=== PATIENT | male | born 1955 | race Caucasian/White ===

== ENCOUNTER 2017-09-30 16:42 | Emergency (ER) | payer OTHER ==
[~2017-09-30] VITALS: Ht 177.8 cm; Wt 102.1 kg
[~2017-09-30 16:42] MED LIST: BAYER CHEWABLE81 MG PO; CARVEDILOL12.5 MG PO; CARVEDILOL25 MG PO; COZAAR 50 MG TA50 M2 PO; EFFEXOR XR75 MG PO; FISH OIL 1,001000 M2 PO; FLEXERIL PO; FLONASE 0.05%50 MCG NASAL; LANOXIN 0.120.125 M1 PO; LIPITOR 20 MG T20 M1 PO; NEXIUM40 MG PO; REQUIP 0.25 M0.25 M1 PO; XANAX 0.5 MG0.5 MG PO
[2017-09-30] MEDS ORDERED: GEMFIBROZIL 60600 MG PO (16:51)
[2017-09-30] MEDS ORDERED: ZANTAC 150MG T150 MG PO (16:51)
[2017-09-30 17:24] LABS: ABSOLUTE BASOPHILS 0.1 thou/uL (0.0-0.2); ABSOLUTE EOSINOPHILS 0.2 thou/uL (0.0-0.7); ABSOLUTE LYMPHOCYTES 2.3 thou/uL (0.8-5.3); ABSOLUTE MONOCYTES 0.6 thou/uL (0.0-1.2); ABSOLUTE NEUTROPHILS 2.7 thou/uL (1.6-8.1); BASOPHILS 1.2 %; EOSINOPHILS 3.8 %; HEMATOCRIT 44.3 % (42.0-52.0); HEMOGLOBIN 15.2 gm/dL (14.0-18.0); MCH 30.5 pg (26.0-34.0); MCHC 34.4 g/dL (28.0-37.0); MCV 88.7 fL (80.0-100.0); MONOCYTES 10.8 %; MPV 9.1 fl. (7.2-11.1); NUCLEATED RBCS 0 /100WBC; PLATELET COUNT* 280 thou/uL (150-400); POLYS 45.2 %; RBC 4.99 mil/uL (4.50-6.00); RDW-CV 13.5 % (10.5-14.5); WBC 5.9 thou/uL (4.0-11.0)
[2017-09-30 17:35] LABS: ANION GAP 11 mmol/L (7-16); APTT 27.1 Seconds (25.0-31.3); BUN 18 mg/dL (7-18); CALCIUM 8.7 mg/dL (8.5-10.1); CHLORIDE 106 mmol/L (98-107); CO2 25 mmol/L (21-32); CREATININE 1.3 mg/dL (0.6-1.3); GLUCOSE 124 mg/dL (70-99); INR 1.1; POTASSIUM 3.8 mmol/L (3.5-5.1); PROTIME 10.6 Seconds (9.20-11.50); SODIUM 142 mmol/L (136-145)
[2017-09-30 17:43] LABS: ALBUMIN 3.7 g/dL (3.4-5.0); ALKALINE PHOSPHATASE 69 U/L (46-116); SGOT 26 U/L (15-37); SGPT 28 U/L (30-65); TOTAL BILIRUBIN 0.5 mg/dL (<0.1-1.0); TOTAL PROTEIN 7.6 g/dL (6.4-8.2); TROPONIN-I LEVEL <0.06 ng/mL (<0.06)
[2017-09-30] MEDS ORDERED: ACYCLOVIR 400400 MG PO (17:48)
[2017-09-30] MEDS ORDERED: PREDNISONE 20 M20 M1 PO (17:48)
[2017-09-30 17:57] VITALS: BP 127/70
--- NOTE | 2017-10-01 17:53 | EKG ---
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 : 1955 Requested By: James Méndez Order Number: [id number] MD: Jason Caban Measurements Intervals [place] Rate: 97 P: 0 SC: 213 QRS: -19 QRSD: 102 T: 56 QT: 364 QTc: 463 Interpretive Statements Sinus rhythm Incomplete RBBB and LAFB Abnormal R-wave progression, early transition Compared to ECG 03/25/2015 23:22:07 Left anterior fascicular block now present Incomplete right bundle-branch block now present Electronically Signed On 10-01-2017 17:53:38 CDT by Jason Caban [email or web address] <ELECTRONICALLY SIGNED> By: Jason Caban MD, [facility] 10/01/17 1753 1714 1714 Jason Caban MD, [facility] /EPI
== END 2017-09-30 17:58 | disposition home or self-care (01) ==
LOC: M.ERS 16:42
PROVIDERS: Family Medicine
DX: G51.0 Bell's palsy (principal); F17.210 Nicotine dependence, cigarettes, uncomplicated; I11.0 Hypertensive heart disease with heart failure; I50.9 Heart failure, unspecified; I25.10 Atherosclerotic heart disease of native coronary artery without angina pectoris; E78.5 Hyperlipidemia, unspecified

== ENCOUNTER 2018-05-06 13:37 | Emergency (ER) | payer OTHER ==
[~2018-05-06] VITALS: Ht 177.8 cm; Wt 89.8 kg
[~2018-05-06 13:37] MED LIST changes: +ACYCLOVIR 400400 MG PO; +GEMFIBROZIL 60600 MG PO; +PREDNISONE 20 M20 M1 PO; +ZANTAC 150MG T150 MG PO
[2018-05-06 14:15] LABS: ABSOLUTE BASOPHILS 0.1 thou/uL (0.0-0.2); ABSOLUTE EOSINOPHILS 0.2 thou/uL (0.0-0.7); ABSOLUTE LYMPHOCYTES 2.7 thou/uL (0.8-5.3); ABSOLUTE MONOCYTES 0.8 thou/uL (0.0-1.2); ABSOLUTE NEUTROPHILS 2.6 thou/uL (1.6-8.1); BASOPHILS 0.9 %; EOSINOPHILS 3.8 %; HEMATOCRIT 45.4 % (42.0-52.0); HEMOGLOBIN 15.4 gm/dL (14.0-18.0); LYMPHOCYTES 42.6 %; MCH 30.1 pg (26.0-34.0); MCHC 33.9 g/dL (28.0-37.0); MCV 88.7 fL (80.0-100.0); MPV 8.8 fl. (7.2-11.1); NUCLEATED RBCS 0 /100WBC; PLATELET COUNT* 283 thou/uL (150-400); POLYS 40.7 %; RBC 5.12 mil/uL (4.50-6.00); RDW-CV 13.5 % (10.5-14.5); WBC 6.4 thou/uL (4.0-11.0)
[2018-05-06 14:23] LABS: ANION GAP 5 mmol/L (7-16); BUN 15 mg/dL (7-18); CALCIUM 9.2 mg/dL (8.5-10.1); CHLORIDE 102 mmol/L (98-107); CO2 28 mmol/L (21-32); CREATININE 1.3 mg/dL (0.6-1.3); GLUCOSE 115 mg/dL (70-99); POTASSIUM 4.1 mmol/L (3.5-5.1); SODIUM 135 mmol/L (136-145)
[2018-05-06 14:24] LABS: APTT 28.9 Seconds (25.0-31.3); PROTIME 10.4 Seconds (9.20-11.50)
[2018-05-06 14:36] LABS: ALBUMIN 3.7 g/dL (3.4-5.0); ALKALINE PHOSPHATASE 85 U/L (46-116); NT-PRO BRAIN NAT PEPTIDE 23 pg/mL (<300); SGOT 24 U/L (15-37); SGPT 36 U/L (30-65); TOTAL BILIRUBIN 0.5 mg/dL (<0.1-1.0); TOTAL PROTEIN 7.8 g/dL (6.4-8.2); TROPONIN-I LEVEL <0.06 ng/mL (<0.06)
[2018-05-06 15:29] LABS: URINE BILIRUBIN NEGATIVE (Negative); URINE BLOOD NEGATIVE (Negative); URINE CLARITY CLEAR; URINE COLOR YELLOW; URINE GLUCOSE-RANDOM NEGATIVE (Negative); URINE KETONES NEGATIVE (Negative); URINE LEUKOCYTES-REFLEX NEGATIVE (Negative); URINE NITRITE-REFLEX NEGATIVE (Negative); URINE PROTEIN NEGATIVE (Negative); URINE SPECIFIC GRAVITY 1.015 (1.005-1.030); URINE UROBILINOGEN 0.2 E.U./dl (0.2-1.0)
[2018-05-06 15:32] VITALS: BP 104/82
--- NOTE | 2018-05-07 13:52 | EKG ---
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 : 1955 Requested By: James Méndez Order Number: [id number] MD: Jasno Caban Measurements Intervals [place] Rate: 80 P: -17 DC: 239 QRS: -37 QRSD: 101 T: 34 QT: 396 QTc: 457 Interpretive Statements Sinus rhythm Prolonged DC interval Left axis deviation Abnormal R-wave progression, early transition Baseline wander in lead(s) V1,V3,V4,V5,V6 Compared to ECG 09/30/2017 17:14:25 First degree AV block now present Incomplete right bundle-branch block no longer present Right bundle-branch block no longer present Electronically Signed On 05-07-2018 13:52:06 CDT by Jason Caban [email or web address] <ELECTRONICALLY SIGNED> By: Jason Caban MD, FACC 05/07/18 1352 1431 1431 Jason Caban MD, FAC /EPI
== END 2018-05-06 15:33 | disposition home or self-care (01) ==
LOC: M.ERS 13:37
PROVIDERS: Family Medicine
DX: R42 Dizziness and giddiness (principal); R06.02 Shortness of breath; R07.9 Chest pain, unspecified; I25.10 Atherosclerotic heart disease of native coronary artery without angina pectoris; E78.5 Hyperlipidemia, unspecified; I11.0 Hypertensive heart disease with heart failure; I50.9 Heart failure, unspecified; G47.33 Obstructive sleep apnea (adult) (pediatric); E66.9 Obesity, unspecified; Z68.28 Body mass index [BMI] 28.0-28.9, adult

== ENCOUNTER 2020-01-26 16:31 | Emergency (ER) | payer OTHER ==
[~2020-01-26] VITALS: Ht 177.8 cm; Wt 88.5 kg
[2020-01-26 18:10] LABS: ABSOLUTE BASOPHILS 0.1 thou/uL (0.0-0.2); ABSOLUTE EOSINOPHILS 0.2 thou/uL (0.0-0.7); ABSOLUTE LYMPHOCYTES 2.6 thou/uL (0.8-5.3); ABSOLUTE MONOCYTES 1.3 thou/uL (0.0-1.2); ABSOLUTE NEUTROPHILS 3.1 thou/uL (1.6-8.1); BASOPHILS 0.8 %; EOSINOPHILS 3.2 %; HEMATOCRIT 43.6 % (42.0-52.0); HEMOGLOBIN 15.1 gm/dL (14.0-18.0); LYMPHOCYTES 35.5 %; MCH 30.7 pg (26.0-34.0); MCHC 34.5 g/dL (28.0-37.0); MCV 88.9 fL (80.0-100.0); MONOCYTES 17.8 %; MPV 8.7 fl. (7.2-11.1); NUCLEATED RBCS 0 /100WBC; PLATELET COUNT* 235 thou/uL (150-400); POLYS 42.7 %; RBC 4.91 mil/uL (4.50-6.00); RDW-CV 13.5 % (10.5-14.5); WBC 7.3 thou/uL (4.0-11.0)
[2020-01-26 18:19] LABS: CALCIUM 8.5 mg/dL (8.5-10.1); CREATININE 1.2 mg/dL (0.6-1.3); POTASSIUM 4.1 mmol/L (3.5-5.1)
[2020-01-26 18:29] LABS: ALBUMIN 3.6 g/dL (3.4-5.0); TOTAL BILIRUBIN 0.2 mg/dL (<0.1-1.0); TOTAL PROTEIN 7.4 g/dL (6.4-8.2)
[2020-01-26 19:04] VITALS: BP 132/80
--- NOTE | 2020-01-27 12:42 | EKG ---
[place] [address] ELECTROCARDIOGRAM REPORT Name: ELDA WILLIAMSON Room: 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: : 1955 Requested By: Riddhi Somers Order Number: [id number] MD: Jason Caban Measurements Intervals [place] Rate: 81 P: 0 DC: 237 QRS: -42 QRSD: 103 T: 47 QT: 402 QTc: 467 Interpretive Statements Sinus rhythm Prolonged DC interval Left anterior fascicular block Probable left ventricular hypertrophy Baseline wander in lead(s) III Compared to ECG 05/06/2018 14:31:07 Left anterior fascicular block now present Electronically Signed On 01-27-2020 12:41:54 CDT by Jason Caban [email or web address] <ELECTRONICALLY SIGNED> By: Jason Caban MD, [facility] 01/27/20 1241 1638 1638 Jason Caban MD, [facility] /EPI
== END 2020-01-26 19:05 | disposition home or self-care (01) ==
LOC: M.ERS 16:31
PROVIDERS: Physician Assistant
DX: R06.00 Dyspnea, unspecified (principal); Z20.828 Contact with and (suspected) exposure to other viral communicable diseases; I25.10 Atherosclerotic heart disease of native coronary artery without angina pectoris; I11.0 Hypertensive heart disease with heart failure; I50.9 Heart failure, unspecified; E78.5 Hyperlipidemia, unspecified; G47.33 Obstructive sleep apnea (adult) (pediatric); E66.9 Obesity, unspecified; Z68.28 Body mass index [BMI] 28.0-28.9, adult

== ENCOUNTER 2020-06-28 18:40 | Observation (INO) | payer OTHER ==
[~2020-06-28] VITALS: Ht 182.9 cm; Wt 89.4 kg
[2020-06-28 18:54] VITALS: BP 124/77
[2020-06-28 19:40] LABS: ABSOLUTE BASOPHILS 0.1 thou/uL (0.0-0.2); ABSOLUTE EOSINOPHILS 0.4 thou/uL (0.0-0.7); ABSOLUTE LYMPHOCYTES 3.2 thou/uL (0.8-5.3); ABSOLUTE MONOCYTES 1.2 thou/uL (0.0-1.2); ABSOLUTE NEUTROPHILS 4.4 thou/uL (1.6-8.1); BASOPHILS 0.6 %; EOSINOPHILS 4.4 %; HEMATOCRIT 50.4 % (42.0-52.0); HEMOGLOBIN 16.9 gm/dL (14.0-18.0); LYMPHOCYTES 35.2 %; MCH 29.9 pg (26.0-34.0); MCHC 33.6 g/dL (28.0-37.0); MCV 89.1 fL (80.0-100.0); MONOCYTES 12.5 %; MPV 7.9 fl. (7.2-11.1); NUCLEATED RBCS 0 /100WBC; PLATELET COUNT* 305 thou/uL (150-400); POLYS 47.3 %; RBC 5.66 mil/uL (4.50-6.00); RDW-CV 13.7 % (10.5-14.5); WBC 9.2 thou/uL (4.0-11.0)
[2020-06-28 19:50] LABS: CALCIUM 8.7 mg/dL (8.5-10.1); CREATININE 1.3 mg/dL (0.6-1.3); POTASSIUM 3.9 mmol/L (3.5-5.1)
[2020-06-28 19:52] LABS: PROTIME 10.6 Seconds (9.20-11.50)
[2020-06-28 20:05] LABS: ALBUMIN 3.4 g/dL (3.4-5.0); MAGNESIUM 2.2 mg/dL (1.8-2.4); TOTAL BILIRUBIN 0.5 mg/dL (<0.1-1.0); TOTAL PROTEIN 7.5 g/dL (6.4-8.2)
[2020-06-28 20:45] LABS: URINE BILIRUBIN NEGATIVE (Negative); URINE BLOOD NEGATIVE (Negative); URINE CLARITY CLEAR; URINE COLOR YELLOW; URINE GLUCOSE-RANDOM NEGATIVE (Negative); URINE KETONES NEGATIVE (Negative); URINE LEUKOCYTES-REFLEX NEGATIVE (Negative); URINE NITRITE-REFLEX NEGATIVE (Negative); URINE PROTEIN NEGATIVE (Negative); URINE SPECIFIC GRAVITY >= 1.030 (1.005-1.030); URINE UROBILINOGEN 0.2 E.U./dl (0.2-1.0)
[2020-06-29 01:00] VITALS: BP 107/80
[2020-06-29 01:43] VITALS: BP 116/77
[2020-06-29 04:00] VITALS: BP 100/66
--- NOTE | 2020-06-29 05:56 | NUR ---
PATIENT UP FROM ER AT 0100 TO ROOM 231. PT ALERT/ORIENTED X4; DENIES PAIN AND NAUSEA. PT SAID DAY BEFORE YESTERDAY HE PASSED OUT AND EMS WAS NOTIFIED. EMS ENCOURAGED HIM TO GO TO ER TO BE CHECKED OUT BUT REFUSED. YESTERDAY HE PASSED OUT AGAIN AND DECIDED TO GO TO ER. PT USES CALL LIGHT APPROPRIATELY FOR ASSISTANCE TO BATHROOM. PT IS SALINE LOCKED IN RT UPPER ARM. PT DENIES NEEDS AT THIS TIME. FREQUENTLY USED ITEMS AND CALL LIGHT WITHIN REACH. SIDERAILS UPX2 AND BED ALARM ON. WILL CONTINUE TO MONITOR.
--- NOTE | 2020-06-29 09:45 | EKG ---
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 : 1955 Requested By: Lola Kraft Order Number: [id number] MD: Som Dumont Measurements Intervals [place] Rate: 77 P: 0 OR: 228 QRS: -48 QRSD: 102 T: 30 QT: 398 QTc: 451 Interpretive Statements Sinus rhythm Prolonged OR interval Left anterior fascicular block Abnormal R-wave progression, late transition Left ventricular hypertrophy Compared to ECG 01/26/2020 16:38:35 No significant changes Electronically Signed On 06-29-2020 9:44:50 [employer] by Som Dumont [email or web address] <ELECTRONICALLY SIGNED> By: Som Dumont MD, FACC 06/29/2044 22 22 Som Dumont MD, FACC /EPI
--- NOTE | 2020-06-29 10:18 | NUR ---
CM SPOKE TO THE PT TO DISCUSS CM ASSESSMENT. PT A&O, INDEPENDENT WITH ADL'S, ACTIVE AND DRIVES. PT RESIDES AT HOME WITH SPOUSE. PT INFORMS THAT HE OWNS A CPAP, BUT DOES NOT USE IT. PT HAS 0 HX OF HH OR SNF. CM WILL REMAIN AVAILABLE TO ASSIST AND FOLLOW NEEDED.
[2020-06-29 11:58] VITALS: BP 112/69
--- NOTE | 2020-06-29 13:55 | 2DMMODE ---
[place] [address] 2 D/M-MODE ECHOCARDIOGRAM Name: CLAYELDA E Room: [address] Traci Huff#: [id number] Admission: 06/28/20 Attend Phys: Matthew Zavala, Discharge: Date of : 55 Date of Service: 06/29/20 1355 Report #: [id number] THIS REPORT FOR: cc: Seema Lazcano Tammy RNP Liston, Michael J. MD [facility] ~ APPROVED REPORT Study performed: 06/29/2020 11:49:57 EXAM: Comprehensive 2D, Doppler, and color-flow Echocardiogram Patient Location: In-Patient Room #: [facility] Status: routine BSA: 2.12 HR: 79 bpm BP: 100/66 mmHg Rhythm: NSR Other Information Study Quality: Good Indications Syncope 2D Dimensions IVSd: 10.22 (7-11mm) LVOT Diam: 20.98 (18-24mm) LVDd: 47.34 mm PWd: 9.16 (7-11mm) Ascending Ao: 34.75 (22-36mm) LVDs: 26.89 (25-40mm) Aortic Root: 31.08 mm Volumes Left Atrial Volume (Systole) LA ESV Index: 12.80 mL/m2 Aortic Valve AoV Peak Eloy.: 0.93 m/s AO Peak Gr.: 3.45 mmHg LVOT Max P.91 mmHg AO Mean Gr.: 2.02 mmHg LVOT Mean P.56 mmHg LVOT Max V: 0.85 m/s AO V2 VTI: 16.34 cm LVOT Mean V: 0.59 m/s BELL (VTI): 3.30 cm2 LVOT V1 VTI: 15.59 [place] [address] 2 D/M-MODE ECHOCARDIOGRAM Name: ELDA WILLIAMSON Room: [address]#: [id number] Admission: 06/28/20 Attend Phys: Matthew Zavala, Discharge: Date of : 55 Date of Service: 06/29/20 1355 Report #: [id number] Mitral Valve E/A Ratio: 0.56 MV Decel. Time: 292.14 ms MV E Max Eloy.: 0.47 m/s MV PHT: 84.72 ms MVA (PHT): 2.60 cm2 TDI E/Lateral E': 5.88 E/Medial E': 7.83 Medial E' Eloy.: 0.06 m/s Lateral E' Eloy.: 0.08 m/s Pulmonary Valve PV Peak Eloy.: 0.88 m/s PV Peak Gr.: 3.08 mmHg Tricuspid Valve RAP Estimate: 5.00 mmHg TR Peak Gr.: 16.80 mmHg RVSP: 21.00 mmHg PA Pressure: 21.00 mmHg Left Ventricle The left ventricle is normal size. There is normal LV segmental wall motion. There is normal left ventricular wall thickness. Left ventricular systolic function is normal. LVEF is 55-60%. Grade I - abnormal relaxation pattern. Right Ventricle The right ventricle is normal size. The right ventricular systolic function is normal. Moderator band is seen in the right ventricle. Atria The left atrium size is normal. The right atrium size is normal. Aortic Valve The aortic valve is normal in structure. No aortic regurgitation is present. There is no aortic valvular stenosis. Mitral Valve The mitral valve is normal in structure. There is no mitral valve regurgitation noted. No evidence of mitral valve stenosis. Tricuspid Valve The tricuspid valve is normal in structure. Trace tricuspid regurgitation. [place] [address] 2 D/M-MODE ECHOCARDIOGRAM Name: ELDA WILLIAMSON Room: [address]#: [id number] Admission: 06/28/20 Attend Phys: Matthew Zavala, Discharge: Date of : 55 Date of Service: 06/29/20 1355 Report #: [id number] Pulmonic Valve The pulmonary valve is normal in structure. There is no pulmonic valvular regurgitation. Great Vessels The aortic root is normal in size. IVC is normal in size and collapses >50% with inspiration. Pericardium There is no pericardial effusion. <Conclusion> The left ventricle is normal size. Left ventricular systolic function is normal. LVEF is 55-60%. Grade I - abnormal relaxation pattern. Trace tricuspid regurgitation. No pulmonary hypertension. IVC is normal in size and collapses >50% with inspiration. <ELECTRONICALLY SIGNED> By: Sergey Gilbert MD, FACC 06/29/20 1355 1355 1355 Sergey Gilbert MD, FACC /INF
--- NOTE | 2020-06-29 18:51 | NUR ---
I ASSUMED CARE OF THE PATIENT AT 0700. HE IS ALERT AND ORIENTED X4 AND IS UP WITH STAND BY ASSIST. BED IS IN THE LOW LOCKED POSITION AND CALL LIGHT IS IN REACH. HOURLY ROUNDING IS COMPLETED AND PATIENT NEEDS ARE MET. PAIN IS DENIED. HOME MEDS WERE REORDERED AND RLS IS AFFECTING HIM SINCE HE MISSED A DOSE. IS AT THE BEDSIDE MOST OF THE DAY. PATIENT WOULD LIKE TO D/C, BUT UNDERSTANDS THAT HE NEEDS ADDITIONAL MONITORING. WILL CONTINUE TO MONITOR.
[2020-06-29 20:00] VITALS: BP 106/60
[2020-06-30] VITALS (7 sets, daily range): BP systolic 92–115; BP diastolic 55–79
--- NOTE | 2020-06-30 06:50 | NUR ---
PATIENT SLEPT WELL DURING THIS SHIFT. PT UP WITH STEADY GAIT TO BATHROOM. PT SALINE LOCKED AT THIS TIME. PT DENIES PAIN/NAUSEA. FREQUENTLY USED ITEMS AND CALL LIGHT WITHIN REACH. SIDERAILS UPX2. WILL CONTINUE TO MONITOR.
--- NOTE | 2020-06-30 10:56 | NUR ---
RECIEVED REPORT AROUND 0730. ASSUMED CARE. PT LYING IN BED. IV INTACT. HEART MONITOR ATTACHED AT SR 1ST DEG. PT STATED "NO" TO ANY PAIN. MEDS GIVEN PER MAR. CALL LIGHT WITHIN REACH. WILL CONTINUE TO MONITOR.
--- NOTE | 2020-06-30 16:11 | NUR ---
DISCHARGE ORDERS RECIEVED. IV TAKEN OUT. HEART MONITOR OFF. PT GIVEN DISCHARGE PACKET. COMMUNICATED UNDERSTANDING. PT LEFT UNIT VIA AMBULATORY WITH NURSING STAFF AT 1605.
== END 2020-06-30 16:05 | disposition home or self-care (01) ==
LOC: M.ERS 18:40 → M.2W 22:51 → M.TBA-ER 22:51 → M.2W 06-29 01:36
PROVIDERS: Emergency Medicine; ADMIT Internal Medicine; ATTEND Internal Medicine
DX: R55 Syncope and collapse (principal); I10 Essential (primary) hypertension; I25.10 Atherosclerotic heart disease of native coronary artery without angina pectoris; I11.0 Hypertensive heart disease with heart failure; I50.9 Heart failure, unspecified; G47.33 Obstructive sleep apnea (adult) (pediatric); Z79.899 Other long term (current) drug therapy; Z20.828 Contact with and (suspected) exposure to other viral communicable diseases

== ENCOUNTER 2021-01-05 14:15 | Emergency (ER) | payer MEDICARE ==
[~2021-01-05] VITALS: Ht 177.8 cm; Wt 98.4 kg
[2021-01-05 15:21] LABS: ABSOLUTE EOSINOPHILS 0.2 thou/uL (0.0-0.7); ABSOLUTE LYMPHOCYTES 2.6 thou/uL (0.8-5.3); ABSOLUTE MONOCYTES 0.9 thou/uL (0.0-1.2); ABSOLUTE NEUTROPHILS 3.2 thou/uL (1.6-8.1); BASOPHILS 0.4 %; EOSINOPHILS 3.5 %; HEMATOCRIT 41.2 % (42.0-52.0); HEMOGLOBIN 14.3 gm/dL (14.0-18.0); LYMPHOCYTES 36.8 %; MCH 30.9 pg (26.0-34.0); MCHC 34.8 g/dL (28.0-37.0); MCV 88.8 fL (80.0-100.0); MONOCYTES 13.5 %; MPV 8.5 fl. (7.2-11.1); NUCLEATED RBCS 0 /100WBC; PLATELET COUNT* 231 thou/uL (150-400); POLYS 45.8 %; RBC 4.63 mil/uL (4.50-6.00); RDW-CV 13.8 % (10.5-14.5)
[2021-01-05 15:25] LABS: CALCIUM 8.4 mg/dL (8.5-10.1); CREATININE 1.1 mg/dL (0.6-1.3)
[2021-01-05 15:30] LABS: ALBUMIN 3.1 g/dL (3.4-5.0); TOTAL BILIRUBIN 0.4 mg/dL (<0.1-1.0); TOTAL PROTEIN 6.9 g/dL (6.4-8.2)
[2021-01-05] MEDS ORDERED: PREDNISONE 20 M20 MG PO (18:07)
[2021-01-05] MEDS ORDERED: APAP W/CODEINE1 TA2 PO (18:07)
[2021-01-05] MEDS ORDERED: NORFLEX100 MG PO (18:07)
[2021-01-05 18:28] VITALS: BP 116/66
== END 2021-01-05 18:29 | disposition home or self-care (01) ==
LOC: M.ERS 14:15
PROVIDERS: Physician Assistant
DX: S16.1XXA Strain of muscle, fascia and tendon at neck level, initial encounter (principal); R51.9 Headache, unspecified; M54.5 Low back pain; R10.31 Right lower quadrant pain; I25.10 Atherosclerotic heart disease of native coronary artery without angina pectoris; I11.0 Hypertensive heart disease with heart failure; I50.9 Heart failure, unspecified; E66.9 Obesity, unspecified; E78.5 Hyperlipidemia, unspecified; G25.81 Restless legs syndrome; X50.1XXA Overexertion from prolonged static or awkward postures, initial encounter; Y93.89 Activity, other specified; Y92.89 Other specified places as the place of occurrence of the external cause; Y99.9 Unspecified external cause status